=== PATIENT | female | born 1955 | race Caucasian/White ===

== ENCOUNTER → 2024-01-01 13:46 | Outpatient (REF) | payer OTHER, SELFPAY | LOC: HWRAD 13:46 | PROVIDERS: ATTENDING PHYSICIAN Nurse Practitioner Women's Health; FAMILY PHYSICIAN Family Medicine | DX: R10.32 Left lower quadrant pain (principal); R10.2 Pelvic and perineal pain | CPT/HCPCS: 76830; 76856 ==

== ENCOUNTER → 2024-07-31 11:10 | Outpatient (REF) | payer OTHER, SELFPAY | LOC: HWWDC 11:10 | PROVIDERS: ATTENDING PHYSICIAN Nurse Practitioner Women's Health; FAMILY PHYSICIAN Family Medicine | DX: Z12.31 Encounter for screening mammogram for malignant neoplasm of breast (principal) | CPT/HCPCS: 77063; 77067 ==

== ENCOUNTER 2024-09-24 14:42 | Emergency (ER) | payer OTHER, SELFPAY ==
[2024-09-24 14:47] VITALS: BP 132/89
--- NOTE | 2024-09-24 16:21 | ED.GENMED ---
History of Present Illness
<Nilton Poole PA-C - Last Filed: 09/24/24 16:24>
General
Chief Complaint: DVT/Possible Blood Clot
Source: patient
Exam Limitations: none
Time Seen by Provider: 09/24/24 16:13
History of Present Illness
History of Present Illness:
68-year-old female with history of factor V Leiden presents complaining of pain behind the left knee. Is been ongoing for 3 days with associated ankle swelling. She denies chest pain or shortness of breath. No known injury. She was seen at the
urgent care and sent here for further evaluation. Not currently anticoagulated but does have a history of clots. No fever. No other complaints.
Past History
<Nilton Poole PA-C - Last Filed: 09/24/24 16:24>
Past History
ED Past Medical History: Cancer (Breast), HTN and Other (DVT poultry hanger)
ED Past Surgical History: Gynecological (Lumpectomy), Orthopedic and Tonsilectomy
Social History
Tobacco: Non-smoker
Phy Exam
<Nilton Poole PA-C - Last Filed: 09/24/24 16:24>
Physical Exam
Physical Exam:
General: Well-appearing female no acute respiratory distress
HEENT: Normocephalic atraumatic heart: Regular rate and rhythm no murmurs
Lungs: Clear no wheeze
Extremities: Mild edema left lower extremity no cyanosis
Musculoskeletal exam: Left knee nontender without effusion full extension limited to flexion to about 80 degrees.
Vascular: No calf tenderness 2+ dorsalis pedis pulse left foot neurologic:
Good sensation left leg
Course
<Nilton Poole PA-C - Last Filed: 09/24/24 16:24>
Orders/Labs/Results
Orders:
Orders
09/24/24 16:19
CR Knee - Left 4 Or More View* Urgent
Comment:
Reason For Exam: pain in knee
Venous Doppler Lwr Ext Left [US Periph Venous LOWER Ext LT] Urgent
Comment:
Reason For Exam: swelling
09/24/24 18:00
CBC/With Diff [Complete Blood Count/With Diff] Urgent
CMP [Comprehensive Metabolic Panel] Urgent
PT/INR [Prothrombin Time] Urgent
PTT Urgent
09/24/24 18:36
Warfarin [Coumadin] 5 mg PO NOW STA
09/24/24 18:42
Enoxaparin Sodium [Lovenox] 80 mg SC NOW STA
Abnormal Lab Results
09/24/24
18:00
MCHC 31.8 L g/dL
(33.0-37.0)
Absolute Neuts (auto) 6.6 H 10^3/uL
(1.4-6.5)
Absolute Monos (auto) 0.8 H 10^3/uL
(0.1-0.6)
Creatinine 0.5 L mg/dL
(0.6-1.0)
09/24/24 18:00
09/24/24 18:00
Vital Signs
Initial and Last Documented VS:
Initial Vital Signs
Temp Pulse Resp BP Pulse Ox
97.8 F 110 18 132/89 95
09/24/24 14:47 09/24/24 14:47 09/24/24 14:47 09/24/24 14:47 09/24/24 14:47
Last Documented Vital Signs
Temp Pulse Resp BP Pulse Ox
97.8 F 80 18 143/91 96
09/24/24 14:47 09/24/24 18:38 09/24/24 18:38 09/24/24 18:38 09/24/24 18:38
<Chinedu Bliss Jr., PA-C - Last Filed: 09/24/24 18:56>
Orders/Labs/Results
Orders:
Orders
09/24/24 16:19
CR Knee - Left 4 Or More View* Urgent
Comment:
Reason For Exam: pain in knee
Venous Doppler Lwr Ext Left [US Periph Venous LOWER Ext LT] Urgent
Comment:
Reason For Exam: swelling
09/24/24 18:00
CBC/With Diff [Complete Blood Count/With Diff] Urgent
CMP [Comprehensive Metabolic Panel] Urgent
PT/INR [Prothrombin Time] Urgent
PTT Urgent
09/24/24 18:36
Warfarin [Coumadin] 5 mg PO NOW STA
09/24/24 18:42
Enoxaparin Sodium [Lovenox] 80 mg SC NOW STA
Abnormal Lab Results
09/24/24
18:00
MCHC 31.8 L g/dL
(33.0-37.0)
Absolute Neuts (auto) 6.6 H 10^3/uL
(1.4-6.5)
Absolute Monos (auto) 0.8 H 10^3/uL
(0.1-0.6)
Creatinine 0.5 L mg/dL
(0.6-1.0)
09/24/24 18:00
09/24/24 18:00
Vital Signs
Initial and Last Documented VS:
Initial Vital Signs
Temp Pulse Resp BP Pulse Ox
97.8 F 110 18 132/89 95
09/24/24 14:47 09/24/24 14:47 09/24/24 14:47 09/24/24 14:47 09/24/24 14:47
Last Documented Vital Signs
Temp Pulse Resp BP Pulse Ox
97.8 F 80 18 143/91 96
09/24/24 14:47 09/24/24 18:38 09/24/24 18:38 09/24/24 18:38 09/24/24 18:38
<Nilton Poole PA-C - Last Filed: 09/24/24 16:24>
MDM/Problems Addressed
Differential Diagnosis Includes:
Left behind the knee pain. Consider DVT versus Núñez's cyst versus DJD of the knee. Ultrasound and x-ray ordered of the left knee and leg.
<Chinedu Bliss Jr., PA-C - Last Filed: 09/24/24 18:56>
*Critical Care Note
Total Time (30-74mins, 75-104mins- exclusive of procedures): Not Applicable
<Chinedu Bliss Jr., PA-C - Last Filed: 09/24/24 18:56>
Update Note
Update Note:
1850: Patient was found to have extensive DVT to the left leg. She previously had failure on Eliquis. The case was discussed with hematology here that recommended doing Lovenox and Coumadin. She claims that she has used Lovenox at home before and
knows how to administer it. Concerning this patient will be able to go home for Lovenox bridge and ongoing Coumadin with close follow-up for INR checks. Otherwise stable here given initial dose of both and will otherwise follow-up.
ED Attending Note
<Nilton Poole PA-C - Last Filed: 09/24/24 16:24>
-
Portions of this chart may have been created with voice recognition software.� Occasional wrong word or��sound alike� substitutions may have occurred due to the inherent limitations of voice recognition software.
Discharge Plan
Departure
Patient Disposition: Home (Routine Discharge)
Date of Disposition: 09/24/24
Time of Disposition: 18:52
Patient with high blood pressure during this ER visit?: No
Condition: Good
Covid-19: Not Applicable
Discharge Problem:
Left leg DVT
Instructions: Warfarin, How to give an anticoagulant shot, Warfarin and your diet
Prescriptions:
New
enoxaparin [Lovenox] 80 mg/0.8 mL syringe
90 mg SC Q12H 5 Days Qty: 9 0RF
warfarin 5 mg tablet
5 mg PO DAILY 14 Days Qty: 14 0RF
No Action
enoxaparin 100 MG/ML syringe
90 mg SC Q12H Qty: 14 0RF
warfarin [Jantoven] 5 MG tablet
5 mg PO DAILY Qty: 10 0RF
Referrals:
Yohannes Shah MD [Active] - Follow up in 5-7 days
UNKNOWN - PT DOES,NOT KNOW [Family Provider] -
Activity Restrictions/Additional Instructions:
You are found have a DVT of your left leg. You are started on Lovenox and Coumadin. Please take Lovenox twice daily at the prescribed dosing over the next 5 days and also take Coumadin once daily at 5 mg. Please feel closely for INR check and
further management. Please follow-up in the next 2 to 3 days.
Interventions
Interventions:
*Risk Screen - Suicide Last Done: 09/24/24 14:47
ED- Cardiac Assessment Last Done: 09/24/24 15:08
ED- Pulmonary Assessment Last Done: 09/24/24 15:08
ED-Peripheral Vascular Assessment Last Done: 09/24/24 15:08
ED-Skin Assessment Last Done: 09/24/24 15:08
Discharge Date and Time
Print Language: GAMBIAN
[2024-09-24 18:12] LABS: % Basophils 0.9 % (0-2); % Eosinophils 2.3 % (0-6); % Immature Granulocytes 0.3 % (0-0.5); % Lymphocytes 22.7 % (20.5-51.1); % Monocytes 7.7 % (1.7-9.3); % Neutrophils 66.1 % (42.2-75.2); Absolute Basophils 0.1 10^3/uL (0-0.2); Absolute Eosinophils 0.2 10^3/uL (0-0.7); Absolute Lymphocytes 2.3 10^3/uL (1.2-3.4); Absolute Monocytes 0.8 10^3/uL (0.1-0.6); Absolute Neutrophils 6.6 10^3/uL (1.4-6.5); Hematocrit 42.4 % (37.0-47.0); Hemoglobin 13.5 g/dL (12.0-16.0); Mean Corp Hgb Conc. 31.8 g/dL (33.0-37.0); Mean Corpuscular Hgb 29.3 pg (27.0-31.0); Mean Platelet Volume 9.3 fL (7.4-10.4); Nucleated Red Blood Cells % 0 %; Platelet Count 271 10^3/uL (130-400); Red Blood Cell Count 4.61 10^6/uL (4.20-5.40); Red Cell Dist. Width 13.5 % (11.5-14.5)
[2024-09-24 18:21] LABS: APTT 27.3 Sec (23.4-35.0); INR 0.92; PT 12.9 Sec (11.4-14.6)
[2024-09-24 18:35] LABS: ALT (SGPT) 18 U/L (0-35); AST (SGOT) 23 U/L (14-36); Albumin 4.4 g/dl (3.5-5.0); Alkaline Phosphatase 81 U/L (38-126); Blood Urea Nitrogen 13 mg/dl (7-17); Calcium 9.4 mg/dl (8.4-10.2); Carbon Dioxide 27 mmol/L (22-30); Chloride 104 mmol/L (98-107); Glucose 91 mg/dl (70-99); Potassium 4.2 mmol/L (3.5-5.1); Sodium 137 mmol/L (135-145); Total Bilirubin 0.4 mg/dl (0.2-1.3); Total Protein 6.9 g/dl (6.3-8.2); eGFR > 60.00
[2024-09-24 18:38] VITALS: BP 143/91; BMI 38.5
[2024-09-24] MEDS: LOVENOX 80 MG SC (18:46)
[2024-09-24] MEDS: COUMADIN 5 MG PO (18:47)
== END 2024-09-24 19:08 | disposition home or self-care (01) ==
LOC: EMR 14:42
PROVIDERS: Physician Assistant; EMERGENCY PHYSICIAN Emergency Medicine
DX: I82.402 Acute embolism and thrombosis of unspecified deep veins of left lower extremity (principal); D68.51 Activated protein C resistance; I10 Essential (primary) hypertension; Z79.01 Long term (current) use of anticoagulants; Z85.3 Personal history of malignant neoplasm of breast; Z86.718 Personal history of other venous thrombosis and embolism
CPT/HCPCS: 99284; 73564; 80053; 85025; 85610; 85730; 93971

== ENCOUNTER → 2025-01-26 16:49 | Outpatient (REF) | payer OTHER, SELFPAY ==
[2025-01-26 17:51] LABS: INR 2.58; PT 27.7 Sec (11.4-14.6)
== END ==
LOC: REG 16:49
DX: I82.409 Acute embolism and thrombosis of unspecified deep veins of unspecified lower extremity (principal)
CPT/HCPCS: 36415; 85610

== ENCOUNTER → 2025-09-03 14:16 | Outpatient (REF) | payer OTHER, SELFPAY | LOC: HWWDC 14:16 | PROVIDERS: ATTENDING PHYSICIAN Nurse Practitioner Women's Health; FAMILY PHYSICIAN Student in an Organized Health Care Education/Training Program | DX: Z12.31 Encounter for screening mammogram for malignant neoplasm of breast (principal) | CPT/HCPCS: 77063; 77067 ==

== ENCOUNTER → 2025-09-24 14:11 | Outpatient (REF) | payer OTHER, SELFPAY | LOC: HWRAD 14:11 | PROVIDERS: ATTENDING PHYSICIAN Nurse Practitioner Women's Health; FAMILY PHYSICIAN Student in an Organized Health Care Education/Training Program | DX: Z13.820 Encounter for screening for osteoporosis (principal) | CPT/HCPCS: 77080 ==